=== PATIENT | male | born 1985 | race Caucasian/White ===

== ENCOUNTER 2021-04-20 10:37 | Emergency (ER) | payer OTHER, SELFPAY ==
--- NOTE | 2021-04-20 10:47 | ED.URI ---
HPI - URI/Sore Throat General Chief Complaint: Upper Respiratory Infection Stated Complaint: Cough,runny nose, congestion Time Seen by Provider: 04/20/21 10:47 Source: patient and RN notes reviewed Mode of arrival: ambulatory Limitations: no limitations History of Present Illness HPI Narrative: 36-year-old male presents to the [facility] with complaints of cough, congestion, headache that started yesterday. States that he has had a runny nose since Friday after running. Has had chills last night but unsure of fevers. 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 Requesting a work note for this weekend due to not feeling well. MD elicited complaint: cough, sore throat, rhinorrhea, nasal congestion and sinus pain Consistency: constant Related Data Home Medications Medication Instructions Recorded Confirmed No Home Medications 04/20/21 04/20/21 Allergies Allergy/AdvReac Type Severity Reaction Status Date / Time No Known Allergies Allergy Verified 04/20/21 10:41 Review of Systems Review of Systems: All systems reviewed & are unremarkable except as noted in HPI and below Constitutional: Constitutional: Reports as per HPI, Reports chills, Denies fatigue, Denies fever(s) and Denies weakness Eyes: Eyes: Reports no additional eye complaints and Denies photophobia ENT: Reports as per HPI, Denies dizziness, Denies dry mouth, Denies ear discharge, Reports headache(s) (Frontal), Denies hoarseness, Denies lip swelling, Denies mouth pain, Reports nasal congestion, Reports nasal discharge (Clear to white), Denies neck mass, Denies neck pain, Reports post nasal drip, Reports sinus pain, Reports sinus pressure, Reports sore throat, Denies throat swelling and Denies tongue swelling Cardiovascular: Cardiovascular: Reports no additional cardiovascular complaints, Denies chest pain and Denies radiating jaw, neck or arm pain Respiratory: Respiratory: Reports as per HPI, Denies chest congestion, Reports cough, Denies dyspnea and Denies wheezing Gastrointestinal: Gastrointestinal: Reports no additional gastrointestinal complaints, Denies abdominal pain, Denies diarrhea, Denies nausea and Denies vomiting Musculoskeletal: Musculoskeletal: Reports no additional musculoskeletal complaints, Denies back pain, Denies myalgias, Denies arthralgias, Denies joint swelling and Denies muscle cramps Integumentary/Breasts: Skin/Breast: Reports system reviewed and no additional complaints, except as docu and Reports rash Neurologic: Reports system reviewed and no additional complaints, except as documented, Denies dizziness, Denies syncope, Reports headache(s) and Denies numbness Psychiatric: Psychiatric: Reports no additional psychiatric complaints PMFSH Past Medical History Medical History (Updated 04/20/21 @ 11:11 by Kassie Hinkle) Patient denies medical problems Surgical History Surgical History (Updated 04/20/21 @ 11:06 by Kassie Hinkle) H/O cleft lip repair Social History Social History Gender identity (if verbalized by the patient): Male Comments At the time of my signature, I reviewed and agree with the nursing past medical, surgical, social, and family history. There is no relevant family history pertinent to the patient complaint. Exam Const: General: no acute distress, alert and ill appearing acutely Nutritional Appearance: well nourished Orientation/consciousness: patient oriented x3 HENMT: Head: normal to inspection and normocephalic Ears: external ears normal and TM's normal bilaterally General nose exam: Abnormal external nose present and Nasal discharge present clear Nose image: 1. Well-healed scar, cleft lip Face and sinus: normal facial exam and sinus tenderness frontal and maxillary Mouth: Yes Normal oral and palatal mucosa present Throat: postnasal drainage (with redness) Eyes: Conjunctivae: conjunctivae normal Pupils: Equal,
[2021-04-20 10:50] VITALS: BP 115/87; PULSE 90; RESP 18; TEMP 37.1; O2SAT 97
[2021-04-21 19:38] LABS: SARS-CoV-2 RNA PCR Negative
== END 2021-04-20 11:20 | disposition home or self-care (01) ==
PROVIDERS: Emergency Provider Nurse Practitioner
DX: J01.40 Acute pansinusitis, unspecified (principal); Z20.822 Contact with and (suspected) exposure to COVID-19
CPT/HCPCS: 87081; 87426; 87880; 99213; C9803; G0463; U0003; U0005

== ENCOUNTER 2021-10-20 10:30 | Emergency (ER) | payer OTHER, SELFPAY ==
--- NOTE | 2021-10-20 10:43 | ED.URI ---
HPI - URI/Sore Throat General Chief Complaint: Nausea/Vomiting/Diarrhea Stated Complaint: Sore Throat,Diarrhea,Vomiting,Nausea Time Seen by Provider: 10/20/21 10:43 Source: patient, RN notes reviewed and old records reviewed Mode of arrival: ambulatory Limitations: no limitations History of Present Illness HPI Narrative: 36-year-old male presents to the [facility] with complaints of a headache, nausea and diarrhea. Patient states that symptoms started late last night, diarrhea started between 2 and 3 AM. 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 States he also needs a work note to be off all weekend. Explained to patient that because his symptoms are less than 3 days that he does not meet criteria for a test due to the high false-negative. Patient became upset and asked where he can get a Covid test. Offered to fax a test to our testing facility so he can be tested on Friday. Patient verbalized that he was unhappy and needed a test today. Denies having fevers. No new foods. No chest pain or abdominal pain. States he has taken Tylenol and Motrin for his pain. Patient does report he was Covid vaccinated within the last month. Related Data Allergies Allergy/AdvReac Type Severity Reaction Status Date / Time No Known Allergies Allergy Verified 10/20/21 10:45 Review of Systems Review of Systems: All systems reviewed & are unremarkable except as noted in HPI and below Constitutional: Constitutional: Reports no additional constitutional complaints, Denies chills and Denies fever(s) Eyes: Eyes: Reports no additional eye complaints ENT: Reports system reviewed and no additional complaints, except as documented, Denies dysphagia, Denies dizziness, Denies nasal congestion and Denies sore throat Cardiovascular: Cardiovascular: Denies chest pain Respiratory: Respiratory: Reports no additional respiratory complaints, Denies cough, Denies dyspnea and Denies wheezing Gastrointestinal: Gastrointestinal: Reports as per HPI, Denies abdominal pain, Reports diarrhea, Reports nausea and Denies vomiting Musculoskeletal: Musculoskeletal: Reports no additional musculoskeletal complaints Integumentary/Breasts: Skin/Breast: Reports system reviewed and no additional complaints, except as docu Neurologic: Reports as per HPI and Reports headache(s) Psychiatric: Psychiatric: Reports no additional psychiatric complaints Allergic/Immunologic: Allergic/Immunologic: Reports no additional allergic/immunologic complaints PMFSH Past Medical History Medical History (Updated 10/20/21 @ 10:54 by Kassie Hinkle) Patient denies medical problems Surgical History Surgical History H/O cleft lip repair Social History Social History Gender identity (if verbalized by the patient): Male Comments At the time of my signature, I reviewed and agree with the nursing past medical, surgical, social, and family history. There is no relevant family history pertinent to the patient complaint. Exam Const: General: healthy appearing, no acute distress and alert Nutritional Appearance: well nourished Orientation/consciousness: patient oriented x3 Limitations: no limitations HENMT: Head: normal to inspection Ears: external ears normal, TM's normal bilaterally and EAC's normal General nose exam: Normal external nose present and Normal nasal mucous membranes and turbinates present Face and sinus: normal facial exam Mouth: Yes Normal oral and palatal mucosa present, Yes oropharynx normal and Yes moist mucous membranes Throat: posterior oropharynx normal and postnasal drainage Eyes: Conjunctivae: conjunctivae normal Pupils: Equal, round and reactive pupils present Neck: Neck: normal visual inspection, no lymphadenopathy and no meningeal signs Chest: Chest palpation & inspection: normal inspection of the chest Resp:
[2021-10-20 10:44] VITALS: BP 126/84; PULSE 76; RESP 18; TEMP 36.8; O2SAT 99
[2021-10-20 11:04] VITALS: BP 139/74; PULSE 67; RESP 20; TEMP 36.7; O2SAT 97
== END 2021-10-20 11:00 | disposition home or self-care (01) ==
PROVIDERS: Emergency Provider Nurse Practitioner
DX: K52.9 Noninfective gastroenteritis and colitis, unspecified (principal)
CPT/HCPCS: 99213; G0463

== ENCOUNTER 2023-06-13 19:43 | Emergency (ER) | payer OTHER, SELFPAY ==
--- NOTE | 2023-06-13 20:20 | PC.NURSE ---
PT CALLED FOR TRIAGE X3 AND DID NOT ANSWER.
== END 2023-06-13 20:20 | disposition left against medical advice (07) ==
DX: Z53.21 Procedure and treatment not carried out due to patient leaving prior to being seen by health care provider (principal)
CPT/HCPCS: 99199

== ENCOUNTER 2025-03-16 09:21 | Emergency (ER) | payer OTHER, SELFPAY ==
--- NOTE | ~2025-03-16 | CT_ITS ---
EXAMINATION: CT lumbar spine wo con DATE: 03/16/2025 11:06 INDICATION: Low back pain post prior surgery TECHNIQUE: Computed tomography (CT) of the lumbar spine was performed without intravenous contrast. A utomated exposure control and iterative reconstruction technique were employed. The dose-length produ ct was 388.73 mGy-cm. COMPARISON: None FINDINGS: L5 laminectomy and resection of the left-sided L5 inferior articular process. Combined L4-L5 instrume nted anterior and posterior spinal fusion with interbody fusion device and bilateral vertical varsha and pedicle screw fixation. Alignment is normal. Vertebral body and disc heights are normal. L4-L5 disc is mildly bulging with minimal central canal stenosis. No central canal stenosis. There is multilevel mild lumbar facet osteoarthritis. There is mild neural foraminal stenosis bilaterally at L4-L5 and L 5-S1. Mild osteoarthritis at the bilateral sacroiliac joints. Paravertebral soft tissues are unremark able. IMPRESSION: 1. Lumbar spondylosis with combined instrumented L5-S1 anterior and posterior spinal fusion. Reviewed, dictated and finalized at location B. IMPRESSION: 1. Lumbar spondylosis with combined instrumented L5-S1 anterior and posterior s daina fusion.
[2025-03-16 09:28] VITALS: BP 130/85; PULSE 91; RESP 18; TEMP 36.7; O2SAT 100
--- OUTSIDE RECORDS SUMMARY | 2025-03-16 09:58 | XMS_ITS | Clinical Summary ---
Author Organization [facility] Address [facility] [place] [address] Care Team Providers Care Wholesale Account Executive Name Role Phone None, Provider MD Primary Care Provider Unavaila ble Allergies Active Allergy Reactions Criticality Noted Date Comments Tape Rash High 11/24/2023 Scarring on the back; pus and swelling Medications ondansetron 4 MG disintegrating tablet Take 1 tablet (4 mg total) by mouth every 8 (eight) hours as needed for Nausea. 20 tablet 1 Active levETIRAcetam (KEPPRA) 500 MG tablet Take 1 tablet (500 mg total) by mouth 2 (two) times daily. 60 tablet 3 Active Zinc-Magnesium Aspart-Vit B6 (ZINC MAGNESIUM ASPARTATE OR) Take 1 tablet by mouth daily. Active Vitamin D3 (CHOLECALCIFEROL) 50 mcg tablet Take 1 tablet (50 mcg total) by mouth daily. Active Multiple Vitamin (MULTIVITAMIN ADULT OR) Take 1 tablet by mouth daily. Active BLACK ELDERBERRY OR Active zonisamide (ZONEGRAN) 100 MG capsule Take 1 capsule (100 mg total) by mouth daily. Active gabapentin (NEURONTIN) 300 MG capsule Take 1 capsule (300 mg total) by mouth 3 (three) times daily. 4 Active clonazePAM (KLONOPIN) 0.5 MG tablet prn Active Active Problems Problem Noted Date Diagnosed Date Lumbar radiculopathy 09/04/2024 Adjustment reaction 09/04/2023 Spinal stenosis, lumbar elida on, with neurogenic claudication 09/02/2023 Seizures (CMS/HCC [facility]) 08/11/2023 Immunizations Immunization Administration Dates Next Due Adenovirus Vaccine 12/08/2012 Fluzone (IIV3, Trivalent, 0. 5 ML Prefilled Syringe) 10/05/2024 Hepatitis A (Havrix 14[address]) 01/23/2014,2012 Influenza (Generic) 09/22/2016, 5,12/24/2014,09/18,09/18/2013,12/08/2012 Influenza Adult (Generic) 08/29/2020,09/2020,08/29/2018,10/17 MMR (MMRII) 02/08/2013,12/08/2012 Meningococcal (Menactra) 12/08/2012 Polio IPV (Ipol) 12/08/2012 Tdap (Boostrix) 05/11/2017 Tdap (Generic) 12/08/2012 Social History Tobacco Use Types Packs/Day Years Used Date Smoking Tobacco: Never Passive Smoke Exposure: Never Smokeless Tobacco: Never Tobacco Cessation:Counseling Given: Yes Comments:vapes Alcohol Use Standard Drinks/Week Comments Yes 0 (1 standard drink = 0.6 oz pur e alcohol) occ AUDIT-C Answer Date Recorded Frequency of Alcohol Consumption Never 09/18/2019 Average Number of Drinks Not on file 019 Frequency of Binge Drinking Not on file 12/2018 PHQ-2 Answer Date Recorded Patient Health Questionnaire-2 Score 3 10/05/2024 Sex and Gender Information Value Date Recorded Sex Assigned at Not on file Legal Sex Male 4:55 PM CDT Gender Identity Not on file Sexual Orientation Not on file Last Filed Vital Signs Vital Sign Reading Time Taken Comments Blood Pressure 110/84 10/05/2024 9:58 AM TAPE STRINGER Pulse 107 10/05/2024 9:58 AM TAPE STRINGER Temperature 37.1 C (98.7 F) 10/05/2024 9:58 AM TAPE STRINGER Respiratory Rate 117 10/05/2024 9:58 AM TAPE STRINGER Oxygen Saturation 98% 10/05/2024 9:58 AM TAPE STRINGER Inhaled Oxygen Concentration - - Weight 74.4 kg (164 lb) 10/05/2024 9:58 AM TAPE STRINGER Height 175.3 cm (5' 9 ) 10/05/2024 9:58 AM TAPE STRINGER Body Mass Index 24.22 10/05/2024 9:58 AM TAPE STRINGER Plan of Treatment Health Maintenance Due Date Last Done Comments Hepatitis C 2002 Hepatitis B Vaccines (1 of 3 - 19+ 3-dose series) 2003 COVID-19 Vaccine (1 2023-2 5 season) 2024 PHQ-2 (Physician [place]) 11/17/2024 10/05/2024 Annual Physical 10/05/2025 10/05/2024 DTaP, Tdap and Td Vaccines ( 3 - Td or Tdap) 05/11/2027 05/11/2017, 12/08/2012 Meningococcal Vaccine Aged Out 12/08/2012 No karen neal eligible based on patient's age to complete this topic HPV Vaccines Aged Out No longer eligi ble based on patient's age to complete this topic Meningococcal B Vaccine Aged Out No l onger eligible based on patient's age to complete this topic Pneumococcal Vaccine: Pediatrics (0 to 5 Years) and At-Risk Patients (6 to 49 Years) Aged Out No longer eligible b ased on patient's age to complete this topic RSV Immunizations Under 20 Months Aged Out No longer eligible b ased on patient's age to complete this topic Insurance Care Teams Wholesale Account Executive Relationship Specialty Start Date End Date None, Provider, PCP - General 09/18/19
--- OUTSIDE RECORDS SUMMARY | 2025-03-16 09:58 | XMS_ITS | Clinical Summary ---
Author Organization [facility] Address [address] [place] [address] Care Team Providers Care Nurse Outreach Case Manager Name Role Phone No, Physician Primary Care Provider [phone] Allergies Active Allergy Reactions Criticality Noted Date Comments Adhesive Rash High 11/24/2023 Scarring on the back; pus and swelling Medications zonisamide (ZONEGRAN) 100 mg capsuleIndicati ons:Partial Epilepsy Treatment Adjunct Take 2 capsules (200 mg total) by mouth nightly 3 Active ascorbic acid (VITAMIN C) 250 mg tabletIndicatio ns:Vitamin C Deficiency Take 4 tablets (1,000 mg total) by mouth every morning Active cholecalciferol (VITAMIN D-3) 2000 unit tabletIndicatio ns:Vitamin D Deficiency Take 1 tablet (2,000 Units total) by mouth nightly Active apple cider vinegar 600 mg capsuleIndicati ons:supplement Take 1,200 mg by mouth nightly Active pyridoxine (VITAMIN B-6) 100 mg tabletIndicatio ns:supplement Take 1 tablet (100 mg total) by mouth every morning Active cyanocobalamin, vitamin B-12, 1,000 mcg capsuleIndicati ons:Prevention of Vitamin B12 Deficiency Take 1,000 mcg by mouth every morning Active multivitamin capsuleIndicati ons:Vitamin Deficiency Prevention Take 1 capsule by mouth nightly Active ELDERBERRY FRUIT ORALIndications :supplement Take 1 tablet by mouth nightly Active UNABLE TO FINDIndications :supplement Take 1 each by mouth nightly Med Name: zinc with magnesium Active acetaminophen 500 mg capsule Take 2 capsules (1,000 mg total) by mouth every 6 (six) hours as needed for pain 3 Active kdtfvpcs-itx-cv rrous sulfate 4.5 mg iron powder in packet Take 1 capsule by mouth nightly Active gabapentin (NEURONTIN) 300 mg capsule Take 1 capsule (300 mg total) by mouth 3 (three) times a day 90 capsule 3 4 03/24/20 25 Active clonazePAM (KlonoPIN) 0.5 mg tablet Take 0.5 tablets (0.25 mg total) by mouth daily as needed [address] (CYMBALTA) 30 mg capsuleIndicati ons:Anxiety with Depression Take 1 capsule (30 mg total) by mouth nightly Active tiZANidine (ZANAFLEX) 4 mg tablet Take 1 tablet (4 mg total) by mouth every 6 (six) hours as needed for muscle spasms 120 tablet 1 5 Active Active Problems Problem Noted Date Diagnosed Date Lumbar radiculopathy 09/04/2024 Low back pain 04/21/2024 Spinal stenosis 10/08/2023 Adjustment disorder 09/04/2023 Spinal stenosis, lumbar elida on, with neurogenic claudication 09/02/2023 Seizures 08/11/2023 Encounters Date Type Department Care Team Description 02/16/2025 Telephone [facility] at [facility] [address] [address], [address] [place] [phone] Naima Ibanez MD from Last 3 Months Immunizations Immunization Administration Dates Next Due Adenovirus 12/08/2012 Hep A, Adult 01/23/2014,12/08/2012 IPV 12/08/2012 Influenza, Quadrivalent, Spl it, Intramuscular 10/17/2017 Influenza, Quadrivalent, Spl it, Preservative Free, Intramuscular 08/29/2020,11/27/2019,08/29/2018 Influenza, Trivalent, IM (MDV) 5,12/24/2014,09/18/2014,09/18 Influenza, Trivalent, Preser vative Free, Intramuscular 09/22/2016,12/08/2012 MMR 02/08/2013,12/08/2012 Meningococcal MCV4P (Menactra) 12/08/2012 PPD TEST 12/03/2012 Tdap 05/11/2017,12/08/2012 Surgical History Surgery Date Site/Laterality Comments CLEFT LIP REPAIR 11/17/1983 - 1984 SPINAL FUSION 10/08/2023 N/A L5-S1 TLIF/PSF W/ Dr. Herrera Medical History Medical History Date Comments Low back pain Family History Medical History Relation Name Comments Anesthesia problems Neg Hx Social History Tobacco Use Types Packs/Day Years Used Date Smoking Tobacco: Every Day Vaping Smokeless Tobacco: Never Tobacco Cessation:Ready to Q uit: Not Asked; Counseling Given: Not Answered Comments:Daily vaping, no cigarettes AUDIT-C Answer Date Recorded Q1: How often do you have a drink containing alc ohol? 2-3 times a week 12/13/2024 Q2: How many drinks containi ng alcohol do you have on a typical day when you are drinking? 7 to 9 12/13/2024 Q3: How often do you have si x or more drinks on one occasion? Weekly 12/13/2024 Personal Safety Answer Date Recorded Have you ever been in or are you currently in a harmful physical or emotional relationship or is someone making you feel afraid or unsafe? Denies 10/08/2023 Sex and Gender Information Value Date Recorded Sex Assigned at Not on file Legal Sex Male 10:21 PM SIDE LASTER TACK Gender Identity Male 10/01/2023 9:44 AM SIDE LASTER TACK Sexual Orientation Not on file Obstetrics History Last Filed Vital Signs Vital Sign Reading Time Taken Comments Blood Pressure 122/73 08/31/2024 9:50 AM CDT Pulse 80 08/31/2024 9:50 AM CDT Temperature 36.2 C (97.2 F) 08/31/2024 9:50 AM CDT Respiratory Rate 18 08/31/2024 9:50 AM CDT Oxygen Saturation 98% 08/31/2024 9:50 AM CDT Inhaled Oxygen Concentration - - Weight 72.6 kg (160 lb) 08/31/2024 9:50 AM CDT Height 175.3 cm (5' 9 ) 08/31/2024 9:50 AM CDT Body Mass Index 23.63 08/31/2024 9:50 AM CDT Plan of Treatment Health Maintenance Due Date Last Done Comments Depression Screening 1984 Hepatitis C Screening 1984 Varicella Vaccines (1 of 2 - 13+ 2-dose series) 1997 Hepatitis B Screening 2002 Regular Well Visit/Exam 18-64 2002 Pneumococcal vaccine <65 (1 of 2 - PCV) 2003 Covid-19 Vaccine (3 - 2023- season) 2024 10/09/2021, 09/18/2021 DTaP/Tdap/Td Vaccine (3 - Td or Tdap) 05/11/2027 05/11/2017, 12/08/2012 Influenza Vaccine Completed 10/05/2024, , 11/27/2019, Additional history exists HPV Vaccines Aged Out No longer eligi ble based on patient's age to complete this topic Goals Goal Patient Goal Type Associated Problems Recent Progress Patient-Stated? Author CCM Chronic Pain Care Plan Chronic Care Management Yanique Lange, RN Note: Problem: Chronic Pain Goals: 1. Minimize further functional decline 2. Maximize quality of life 3. Control pain Strategies: - Activity/exercise program recommendation - Conservative stepwise pain medicine strategy with multi-disciplinary approach - Recommend healthy lifestyle strategies and compensatory methods as needed Reduce the likelihood of falling Lifestyle No Yanique Obrien, RN Note: Below are four things you can do to prevent falls: Begin an exercise program to improve your leg strength & balance Ask your doctor or pharmacist to review your medicines Get annual eye check-ups & update your eyeglasses Make your home safer by: Removing clutter & tripping hazards Putting railings on all stairs & adding grab bars in the bathroom Having good lighting, especially on stairs Contact your local community or senior center for information on exercise, fall prevention programs, or options for improving home safety. Medical Devices Implanted Type Area Mud Analysis Operator Device Identifier Shelf Expiration Date Model / Serial / Lot Medtronic Inc Bmp Infuse Sm [id number] - [id number] Implanted:Qty : 1 on 10/08/2023 by Demond Herrera MD at [facility] Graft N/A: Spine Lumbar Med[employer]onic Inc [id number] 01/15/2025 [id number] / / [id number] [employer] Implant Spinal Sable [id number] 6-12mm 8 Deg 1172.2009s - [id number] Implanted:Qty : 1 on 10/08/2023 by Demond Herrera MD at [facility] Other - see comments N/A: Spine Lumbar [employer] [id number] 07/16/2032 1172.2009S / / [id number] Description:Spacer [employer] Creo Thread Spinal Cap Locking Nonsterile 1119.0010 - [id number] Implanted:Qty : 4 on 10/08/2023 by Demond Herrera MD at [facility] Other - see comments N/A: Spine Lumbar [employer] 1119.0010 / / Description:Locking Caps [employer] Creo 5.5mm 40mm Curve Keanu Spinal Titanium 1119.7040 - [id number] Implanted:Qty : 2 on 10/08/2023 by Demond Herrera MD at [facility] Other - see comments N/A: Spine Lumbar [employer] 1119.7040 / / Description:Keanu [employer] Creo Od6.5 Mm L45 Mm Thread Polyaxial Spine Screw Bone Titanium 5146.1647 - [id number] Implanted:Qty : 4 on 10/08/2023 by Demond Herrera MD at [facility] Screw N/A: Spine Lumbar [employer] 5146.1647 / / Allosource Crushed Chip Frozen Graft 30ml Bone Cancellous [id number] - [id number] Implanted:Qty : 1 on 10/08/2023 by Demond Herrera MD at [facility] N/A: Spine Lumbar [employer] 03/25/2028 [id number] / / [id number] Insurance [facility] CLAIMS 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
--- OUTSIDE RECORDS SUMMARY | 2025-03-16 09:58 | XMS_ITS | Clinical Summary ---
Author Organization [facility] [employer] Address [address] [place] [address] Care Team Providers Care Business Functional Analyst Name Role Phone Unavailable Primary Care Provider Unavailabl e Source Comments [facility] [employer],non-owned Affiliates and Associated Physician Practices is amultiple site organization consisting of ambulatory clinics and hospital sitesin [place], [place], [place] and [place]. This disclosure is being madepursuant to the Care Everywhere program and may not contain all information available regarding this patient. Last updated 18.[facility] [employer] Allergies Active Allergy Reactions Criticality Noted Date Comments Adhesive Sensitivity Rash High 11/24/2023 Scarring on the back; pus and swelling Medications * This document contains information received from the source organization and may not represent a complete record from that organization. * Be aware that medications may not be up to date on this document. Alwaysverify current medications with the patient. Apple Cider Vinegar 600 MG Take 1,200 mg by mouth once daily Active vitamin E (Tocopheryl) 100 UNIT capsule Take 4 (four) capsules by mouth once daily Active Cyanocobalamin (B-12) 1000 MCG Take 1,000 mcg by mouth once daily Active ascorbic acid (Vitamin C) 250 MG tablet Take 4 (four) tablets by mouth once daily Active Zinc-Magnesium Aspart-Vit B6 (ZINC MAGNESIUM ASPARTATE PO) Take 1 tablet by mouth at bedtime Active Vitamin D3, cholecalciferol, 50 MCG (2000 UT) tablet Take 1 (one) tablet by mouth at bedtime Active Multiple Vitamins-Minerals (MENS MULTIVITAMIN PO) Take 1 tablet by mouth at bedtime Active BLACK ELDERBERRY PO Take 1 tablet by mouth at bedtime Active Pyridoxine HCl (B-6) 100 MG Take 1 tablet by mouth at bedtime Active ascorbic acid (Vitamin C) 250 MG tablet Take 4 (four) tablets by mouth every morning Active cyclobenzaprine (Flexeril) 5 MG tablet 3 Active Cyanocobalamin 1000 MCG Take 1,000 mcg by mouth every morning Active multivitamins (One A Day) capsule Take 1 (one) capsule by mouth at bedtime Active zonisamide (Zonegran) 100 MG capsule Take 2 (two) capsules by mouth at bedtime 180 capsule 3 4 Active DULoxetine (Cymbalta) 60 MG capsule Take 1 (one) capsule by mouth once daily 90 capsule 1 5 Active clonazePAM (KlonoPIN) 0.5 MG tabletIndications :Anxiety Take 0.5 (one-half) tablet by mouth once daily as needed for Anxiety Reasons: Feeling Anxious 15 tablet 1 5 Active mirtazapine (Remeron) 7.5 MG tablet Take 1 (one) tablet by mouth at bedtime 90 tablet 5 Active Active Problems Problem Noted Date Diagnosed Date Seizures 08/11/2023 Encounters * This document contains information received from the source organization and may not represent a complete record from that organization. Date Type Department Care Team Description 12/24/2024 Travel from Last 3 Months Social History Tobacco Use Types Packs/Day Years Used Date Smoking Tobacco: Never Smokeless Tobacco: Never Tobacco Cessation:Counseling Given: Not Answered Alcohol Use Standard Drinks/Week Comments Yes 0 (1 standard drink = 0.6 oz pur e alcohol) AUDIT-C Answer Date Recorded Q1: How often do you have a drink containing alc ohol? Monthly or less 08/11/2023 Q2: How many drinks containi ng alcohol do you have on a typical day when you are drinking? 1 or 2 08/11/2023 Q3: How often do you have si x or more drinks on one occasion? Never 08/11/2023 Overall Financial Resource Strain (CARDIA) Answe r Date Recorded How hard is it for you to pa y for the very basics like food, housing, medical care, and heating? Not hard at all 08/11/2023 PHQ-2 Answer Date Recorded Patient Health Questionnaire-2 Score 2 12/24/2024 [place] [facility] - Occupational Stress Questionnaire Answer Date Recorded Do you feel stress - tense, restless, nervous, or anxious, or unable to sleep at night because your mind is troubled all the time - these days? Not at all 08/11/2023 Hunger Vital Sign Answer Date Recorded Within the past 12 months, y ou worried that your food would run out before you got the money to buy more. Never true 08/11/20 Within the past 12 months, t he food you bought just didn't last and you didn't have money to get more. Never true 08/11/2023 PRAPARE - Transportation Answer Date Re corded In the past 12 months, has l ack of transportation kept you from medical appointments or from getting medications? No 07/19 In the past 12 months, has l ack of transportation kept you from meetings, work, or from getting things needed for daily living? No 08/11/2023 Housing Stability Vital Sign Answer Blair e Recorded In the last 12 months, was t here a time when you were not able to pay the mortgage or rent on time? No 08/11/2023 In the last 12 months, how many places have you lived? 1 08/11/2023 In the last 12 months, was t here a time when you did not have a steady place to sleep or slept in a [place] (including now)? No 08/11/2023 Sex and Gender Information Value Date Recorded Sex Assigned at Male 10/09/2023 9:19 AM EXCELLENCE COACH Legal Sex Male 12:24 PM EXCELLENCE COACH Gender Identity Male 10/09/2023 9:19 AM EXCELLENCE COACH Sexual Orientation Straight 10/09/2023 9: 19 AM EXCELLENCE COACH Last Filed Vital Signs Vital Sign Reading Time Taken Comments Blood Pressure 114/80 12/24/2024 10:59 AM EXCELLENCE COACH Pulse 60 12/24/2024 10:59 AM EXCELLENCE COACH Temperature 36.8 C (98.3 F) 07/21/2024 12:25 AM CDT Respiratory Rate 16 07/21/2024 3:21 AM CDT Oxygen Saturation 68% 12/24/2024 10:59 AM EXCELLENCE COACH Inhaled Oxygen Concentration - - Weight 75.8 kg (167 lb) 12/24/2024 10:59 AM EXCELLENCE COACH Height 175.3 cm (5' 9 ) 12/24/2024 10:59 AM EXCELLENCE COACH Body Mass Index 24.66 12/24/2024 10:59 AM EXCELLENCE COACH Plan of Treatment Upcoming Encounters Date Type Department Care Team (Late st Contact Info) Description 06/28/2025 10:30 AM CDT Office Visit [facility] - Neurology [address] [place] [phone] Daren Nguyen MD [facility] [place] [id number] Health Maintenance Due Date Last Done Comments HIV SCREENING 1999 HEPATITIS C SCREENING 03/26/2002 DTAP/TDAP/TD VACCINES (1 - Tdap) 2003 HEPATITIS B VACCINE (1 of 3 - 19+ 3-dose series) 2003 COVID-19 VACCINE (3 - 2023- season) 2024 10/09/2021, 09/18/2021 LIPID TESTING 10/05/2029 10/05/2024 ZOSTER VACCINE (1 of 2) 2034 INFLUENZA VACCINE Completed 10/05/2024, , 11/27/2019, Additional history exists DEPRESSION SCREENING Completed 12/24/2024, 06/09/20 24 HIB VACCINE Aged Out No longer eligi ble based on patient's age to complete this topic HPV VACCINE Aged Out No longer eligi ble based on patient's age to complete this topic MENINGOCOCCAL (Group B) VACCINE SHARED DECISION-MAKING Aged Out No longer eligible based on patient's age to complete this topic MENINGOCOCCAL GROUPS A/C/Y/W VACCINE Aged Out No longer eligible based on patient's age to complete this topic PNEUMOCOCCAL VACCINE Aged Out No long er eligible based on patient's age to complete this topic Insurance Advance Directives * Full Code (Latest Code Status on File) Date Activated Date Inactivated Comments 08/11/2023 9:27 AM 08/16/2023 5:21 PM
--- OUTSIDE RECORDS SUMMARY | 2025-03-16 09:58 | XMS_ITS | Encounter Summary ---
Author Organization [facility] Address [address] [place] [address] Care Team Providers Care Technical Services Manager Name Role Phone Unknown, Notinfile Primary Care Provider Unavail able No, Physician Primary Care Provider [phone] Reason for Visit * Reason Onset Date Comments Scheduling Appointments 06/25/2024 Pt's wif e called in to schedule f/u Encounter Details Date Type Department Care Team ([facility] Contact Info) Description 06/25/2024 Telephone Pain Management Center at [facility] [address] [address], [address] [place] [address] Naima Ibanez MD [address] [place] [address] Scheduling Appointments (Pt's called in to schedule f/u) Social History Tobacco Use Types Packs/Day Years Used Date Smoking Tobacco: Every Day Cigarettes Last attempted to quit: 1999 Vaping Smokeless Tobacco: Never Comments:Daily vaping, no ci garettes AUDIT-C Answer Date Recorded Q1: How often do you have a drink containing alc ohol? Monthly or less 04/22/2024 Q2: How many drinks containi ng alcohol do you have on a typical day when you are drinking? 1 or 2 04/22/2024 Q3: How often do you have si x or more drinks on one occasion? Never 04/22/2024 Personal Safety Answer Date Recorded Have you ever been in or are you currently in a harmful physical or emotional relationship or is someone making you feel afraid or unsafe? Denies 10/08/2023 Sex and Gender Information Value Date Recorded Sex Assigned at Not on file Legal Sex Male 10:21 PM MANAGER NC Gender Identity Male 10/01/2023 9:44 AM MANAGER NC Sexual Orientation Not on file documented as of this encounter Plan of Treatment Not on file documented as of this encounter Goals Goal Patient Goal Type Associated Problems [...] needed Reduce the likelihood of falling Lifestyle Yanique Lange, RN Note: Below are four things you [...] programs, or options for improving home safety. documented as of this encounter Visit Diagnoses Not on filedocumented in this encounter Care Teams Technical Services Manager Relationship Specialty Start Date End Date Unknown, Notinfile PCP - General 10/10/23 12/12/24 No, Physician PCP - General 12/13/24 documented as of this encounter
--- OUTSIDE RECORDS SUMMARY | 2025-03-16 09:58 | XMS_ITS | Referral Summary ---
Author Organization [facility] Address [address] [place] [address] Care Team Providers Care Tactical Air Control Party Manager Name Role Phone No, Physician Primary Care Provider [phone] Encounters Date Type Department Care Team Description 02/16/2025 Telephone [facility] at [facility] [address] [place] [address] Naima Ibanez MD from Last 3 Months Allergies Active Allergy Reactions Criticality Noted Date [...] hours as needed for pain 3 Active wgcsbjhn-uhh-di rrous sulfate 4.5 mg iron powder in [...] on, with neurogenic claudication 09/02/2023 Seizures 08/11/2023 Immunizations Immunization Administration Dates Next Due Adenovirus 12/08/2012 Hep A, Adult 01/23/2014,12/08/2012 IPV 12/08/2012 Influenza, Quadrivalent, Spl it, Intramuscular 10/17/2017 Influenza, Quadrivalent, Spl it, Preservative Free, Intramuscular 08/29/2020,11/27/2019,08/29/2018 Influenza, Trivalent, IM (MDV) 5,12/24/2014,09/18/2014,09/18 Influenza, Trivalent, Preser vative Free, Intramuscular 09/22/2016,12/08/2012 MMR 02/08/2013,12/08/2012 Meningococcal MCV4P (Menactra) 12/08/2012 PPD TEST 12/03/2012 Tdap 05/11/2017,12/08/2012 Social History Tobacco Use Types Packs/Day Years [...] on file Legal Sex Male 10:21 PM NURSING FACULTY Gender Identity Male 10/01/2023 9:44 AM NURSING FACULTY Sexual Orientation Not on file Last Filed [...] 08/31/2024 9:50 AM CDT Plan of Treatment Not on file Goals Goal Patient Goal Type Associated Problems [...] on stairs Contact your local community or [facility] for information on exercise, fall prevention programs, or options for improving home safety. Medical Devices Implanted Type Area Worm Farmer Device Identifier Shelf Expiration Date Model / Serial / Lot Medtronic Inc Bmp Infuse Sm [id number] - [id number] Implanted:Qty : 1 on 10/08/2023 by Demond Herrera MD at [facility] Graft N/A: Spine Lumbar Medtronic Inc [id number] 01/15/2025 [id number] / / [id number] Globus Medical Implant Spinal Sable [id number] 6-12mm 8 Deg 1172.2009s - [id number] Implanted:Qty : 1 on 10/08/2023 by Demond Herrera MD at [facility] Other - see comments N/A: Spine Lumbar [employer] [id number] 07/16/2032 1172.2009S / / [id number] Description:Spacer [employer] Creo Thread Spinal Cap Locking Nonsterile 1119.0010 - [id number] Implanted:Qty : 4 on 10/08/2023 by Demond Herrera MD at [facility] Other - see comments N/A: Spine Lumbar [employer] 1119.0010 / / Description:Locking Caps Gl[employer] Creo 5.5mm 40mm Curve Keanu Spinal Titanium 1119.7040 - [id number] Implanted:Qty : 2 on 10/08/2023 by Demond Herrera MD at [facility] Other - see comments N/A: Spine Lumbar [employer] 1119.7040 / / Description:Keanu [employer] Creo Od6.5 Mm L45 Mm Thread Polyaxial Spine Screw Bone Titanium 5146.1647 - [id number] Implanted:Qty : 4 on 10/08/2023 by Demond Herrera MD at [facility] Screw N/A: Spine Lumbar [employer] 5146.1647 / / Allosource Crushed Chip Frozen Graft 30ml Bone Cancellous [id number] - [id number] Implanted:Qty : 1 on 10/08/2023 by Demond Herrera MD at [facility] N/A: Spine Lumbar [employer] 03/25/2028 [id number] / / [id number] Insurance [facility] CLAIMS [facility] CLAIMS Advance Directives For more information, please contact: [phone] Documents on File Type Date Recorded Patient Level Vial Inside Grinder Expl anation ADVANCE DIRECTIVE 09/19/2023 12:51 PM XIMENA R OF MECHANICAL DOOR REPAIRER-MEDICAL * Full Code (Latest Code Status on File) Date Activated Date Inactivated Comments 10/08/2023 7:26 PM 10/11/2023 5:49 PM Care Teams Tactical Air Control Party Manager Relationship Specialty Start Date End Date No, Physician PCP - General 12/13/24
--- OUTSIDE RECORDS SUMMARY | 2025-03-16 10:43 | XMS_ITS | Clinical Summary ---
Author Organization [facility] Address [facility] [place] [address] Care Team Providers Care Can Top Setter Name Role Phone None, Provider MD Primary [...] with neurogenic claudication 09/02/2023 Seizures (CMS/HCC [facility]) 08/11/2023 Immunizations Immunization Administration Dates Next Due [...] Comments Blood Pressure 110/84 10/05/2024 9:58 AM PULMONARY FUNCTION TECHNOLOGIST Pulse 107 10/05/2024 9:58 AM PULMONARY FUNCTION TECHNOLOGIST Temperature 37.1 C (98.7 F) 10/05/2024 9:58 AM PULMONARY FUNCTION TECHNOLOGIST Respiratory Rate 117 10/05/2024 9:58 AM PULMONARY FUNCTION TECHNOLOGIST Oxygen Saturation 98% 10/05/2024 9:58 AM PULMONARY FUNCTION TECHNOLOGIST Inhaled Oxygen Concentration - - Weight 74.4 kg (164 lb) 10/05/2024 9:58 AM PULMONARY FUNCTION TECHNOLOGIST Height 175.3 cm (5' 9 ) 10/05/2024 9:58 AM PULMONARY FUNCTION TECHNOLOGIST Body Mass Index 24.22 10/05/2024 9:58 AM PULMONARY FUNCTION TECHNOLOGIST Plan of Treatment Health Maintenance Due Date Last Done Comments Hepatitis C 2002 Hepatitis B Vaccines (1 of 3 - 19+ 3-dose series) 2003 COVID-19 Vaccine (1 2023-2 5 season) 2024 PHQ-2 (Physician [place]) 11/17/2024 10/05/2024 Annual Physical 10/05/2025 10/05/2024 DTaP, [...] to complete this topic Insurance Care Teams Can Top Setter Relationship Specialty Start Date End Date None, Provider, PCP - General 09/18/19
--- OUTSIDE RECORDS SUMMARY | 2025-03-16 10:43 | XMS_ITS | Clinical Summary ---
Author Organization [facility] Address [address] [place] [address] Care Team Providers Care Sales And Marketing Engineer Name Role Phone No, Physician Primary Care Provider [phone] Allergies Active Allergy Reactions Criticality Noted Date [...] hours as needed for pain 3 Active xikquanj-lus-yf rrous sulfate 4.5 mg iron powder in [...] Description 02/16/2025 Telephone Pain Management Center at [facility] [address] [address], [address] [place] [address] Naima Ibanez MD from Last 3 Months [...] on file Legal Sex Male 10:21 PM ORTHOTIC/PROSTHETIC CLINICIAN Gender Identity Male 10/01/2023 9:44 AM ORTHOTIC/PROSTHETIC CLINICIAN Sexual Orientation Not on file Obstetrics History [...] home safety. Medical Devices Implanted Type Area Job Site Supervisor Device Identifier Shelf Expiration Date Model / Serial / Lot Medtronic Inc Bmp Infuse Sm [id number] - [id number] Implanted:Qty : 1 on 10/08/2023 by Demond Herrera MD at [facility] Graft N/A: Spine Lumbar Medtronic Inc [id number] 01/15/2025 [id number] / / [id number] Globus Medical Implant Spinal Sable [id number] 6-12mm 8 Deg 1172.2009s - [id number] Implanted:Qty : 1 on 10/08/2023 by Demond Herrera MD at [facility] Other - see comments N/A: Spine Lumbar [employer] [id number] 07/16/2032 1172.2009S / / [id number] Description:Spacer Gl[employer] Medical Creo Thread Spinal Cap Locking Nonsterile 1119.0010 - [id number] Implanted:Qty : 4 on 10/08/2023 by Demond Herrera MD at [facility] Other - see comments N/A: Spine Lumbar Gl[employer] 1119.0010 / / Description:Locking Caps Gl[employer] Medical Creo 5.5mm 40mm Curve Keanu Spinal Titanium 1119.7040 - [id number] Implanted:Qty : 2 on 10/08/2023 by Demond Herrera MD at [facility] Other - see comments N/A: Spine Lumbar [employer] 1119.7040 / / Description:Keanu Gl[employer] Medical Creo Od6.5 Mm L45 Mm Thread Polyaxial Spine Screw Bone Titanium 5146.1647 - [id number] Implanted:Qty : 4 on 10/08/2023 by Demond Herrera MD at [facility] Screw N/A: Spine Lumbar [employer] 5146.1647 / / Allosource Crushed Chip Frozen Graft 30ml Bone Cancellous [id number] - [id number] Implanted:Qty : 1 on 10/08/2023 by Demond Herrera MD at [facility] N/A: Spine Lumbar Allosource 03/25/2028 [id number] / / [id number] Insurance [facility] CLAIMS [facility] CLAIMS Advance Directives For more information, please contact: [phone] Documents on File Type Date Recorded Patient Delinquent Tax Collector Expl anation ADVANCE DIRECTIVE 09/19/2023 12:51 PM XIMENA R OF AIRCRAFT REFUELLER-MEDICAL * Full Code (Latest Code Status on File) Date Activated Date Inactivated Comments 10/08/2023 7:26 PM 10/11/2023 5:49 PM Care Teams Sales And Marketing Engineer Relationship Specialty Start Date End Date No, Physician PCP - General 12/13/24
--- OUTSIDE RECORDS SUMMARY | 2025-03-16 10:43 | XMS_ITS | Encounter Summary ---
Author Organization [facility] Healthcare Address [address] [place] [address] Care Team Providers Care Design Engineering Manager Name Role Phone Unknown, Notinfile Primary Care Provider Unavail able No, Physician Primary Care Provider [phone] Reason for Visit * Reason Onset Date Comments Scheduling Appointments 06/25/2024 Pt's wif e called in to schedule f/u Encounter Details Date Type Department Care Team ([facility] Contact Info) Description 06/25/2024 Telephone Pain Management Center at [facility] [address] [address], [address] [place] [address] Naima Ibanez MD [address] [place] [address] Scheduling Appointments (Pt's called in [...] on file Legal Sex Male 10:21 PM GLOVE PARTS INSPECTOR Gender Identity Male 10/01/2023 9:44 AM GLOVE PARTS INSPECTOR Sexual Orientation Not on file documented as [...] on filedocumented in this encounter Care Teams Design Engineering Manager Relationship Specialty Start Date End Date Unknown, Notinfile PCP - General 10/10/23 12/12/24 No, Physician PCP - General 12/13/24 documented as of this encounter
--- OUTSIDE RECORDS SUMMARY | 2025-03-16 10:43 | XMS_ITS | Clinical Summary ---
Author Organization [facility] [employer] Address [address] [place] [address] Care Team Providers Care Smoking Pipe Coater Name Role Phone Unavailable Primary Care Provider Unavailabl e Source Comments [facility],non-owned Affiliates and Associated Physician Practices is amultiple site organization consisting of ambulatory clinics and hospital sitesin [place], [place], [place] and [place]. This disclosure is being madepursuant to the Care Everywhere program and may not contain all information available regarding this patient. Last updated 18.[facility] Allergies Active Allergy Reactions Criticality Noted Date [...] Recorded Patient Health Questionnaire-2 Score 2 12/24/2024 [place] [facility] Occupat ional Health - Occupational Stress [...] Sex Assigned at Male 10/09/2023 9:19 AM ANCHORMAN Legal Sex Male 12:24 PM ANCHORMAN Gender Identity Male 10/09/2023 9:19 AM ANCHORMAN Sexual Orientation Straight 10/09/2023 9: 19 AM ANCHORMAN Last Filed Vital Signs Vital Sign Reading Time Taken Comments Blood Pressure 114/80 12/24/2024 10:59 AM ANCHORMAN Pulse 60 12/24/2024 10:59 AM ANCHORMAN Temperature 36.8 C (98.3 F) 07/21/2024 12:25 AM CDT Respiratory Rate 16 07/21/2024 3:21 AM CDT Oxygen Saturation 68% 12/24/2024 10:59 AM ANCHORMAN Inhaled Oxygen Concentration - - Weight 75.8 kg (167 lb) 12/24/2024 10:59 AM ANCHORMAN Height 175.3 cm (5' 9 ) 12/24/2024 10:59 AM ANCHORMAN Body Mass Index 24.66 12/24/2024 10:59 AM ANCHORMAN Plan of Treatment Upcoming Encounters Date Type Department Care Team (Late st Contact Info) Description 06/28/2025 10:30 AM CDT Office Visit [facility] - [facility]rology [address] [place] [address] Daren Nguyen MD [facility] [place] [address] Health Maintenance Due Date Last Done Comments [...]
--- OUTSIDE RECORDS SUMMARY | 2025-03-16 10:43 | XMS_ITS | Referral Summary ---
Author Organization [facility] Address [address] [place] [address] Care Team Providers Care Jtac Name Role Phone No, Physician Primary Care Provider [phone] Encounters Date Type Department Care Team Description 02/16/2025 Telephone [facility] at [facility] [address] [place] [address] Naima Ibanez MD from Last [...] hours as needed for pain 3 Active urxovfyu-pum-uc rrous sulfate 4.5 mg iron powder in [...] on file Legal Sex Male 10:21 PM DATA PROCESSING CONSULTANT Gender Identity Male 10/01/2023 9:44 AM DATA PROCESSING CONSULTANT Sexual Orientation Not on file Last Filed [...] on stairs Contact your local community or [facility] for information on exercise, fall prevention programs, or options for improving home safety. Medical Devices Implanted Type Area [employer] Carpenter Device Identifier Shelf Expiration Date Model / Serial / Lot Med[employer]onic Inc Bmp Infuse Sm [id number] - [id number] Implanted:Qty : 1 on 10/08/2023 by Demond Herrera MD at [facility] Graft N/A: Spine Lumbar Med[employer] Inc [id number] 01/15/2025 [id number] / / [id number] [employer] Implant Spinal Sable [id number] 6-12mm 8 Deg 1172.2009s - [id number] Implanted:Qty : 1 on 10/08/2023 by Demond Herrera MD at [facility] Other - see comments N/A: Spine Lumbar [employer] [id number] 07/16/2032 1172.2009S / / [id number] Description:Spacer [employer] Creo Thread Spinal Cap Locking Nonsterile 1119.0010 - [id number] Implanted:Qty : 4 on 10/08/2023 by Demond Herrera MD at [facility] Other - see comments N/A: Spine Lumbar [employer] 1119.0010 / / Description:Locking Caps [employer] Creo 5.5mm 40mm Curve Keanu Spinal Titanium 1119.7040 - [id number] Implanted:Qty : 2 on 10/08/2023 by Demond Herrera MD at [facility] Other - see comments N/A: Spine Lumbar [employer] 1119.7040 / / Description:Keanu [employer] Creo Od6.5 Mm L45 Mm Thread Polyaxial Spine Screw Bone Titanium 5146.1647 - [id number] Implanted:Qty : 4 on 10/08/2023 by Demond Herrera MD at [facility] Screw N/A: Spine Lumbar [employer] 5146.1647 / / Allosource Crushed Chip Frozen Graft 30ml Bone Cancellous [id number] - [id number] Implanted:Qty : 1 on 10/08/2023 by Demond Herrera MD at [facility] N/A: Spine Lumbar [employer] 03/25/2028 [id number] / / [id number] Insurance [facility] CLAIMS [facility] CLAIMS Advance Directives For more information, please contact: [phone] Documents on File Type Date Recorded Patient Liner Man Expl anation ADVANCE DIRECTIVE 09/19/2023 12:51 PM XIMENA R OF VALIDATION SPECIALIST-MEDICAL * Full Code (Latest Code Status on File) Date Activated Date Inactivated Comments 10/08/2023 7:26 PM 10/11/2023 5:49 PM Care Teams Jtac Relationship Specialty Start Date End Date No, Physician PCP - General 12/13/24
--- NOTE | 2025-03-16 10:47 | ED.BACK ---
HPI - Back Pain/Injury General Chief Complaint: Back Pain/Injury Stated Complaint: burning sensation down R leg and bilateral feet Time Seen by Provider: 03/16/25 09:39 History of Present Illness HPI Narrative: Patient is a 39-year-old male who presents to the ER with complaints of lower back pain. He reports he went for a jog on Friday, 5 days ago. Since then he has experienced significant back pain, especially on the right side, that radiates down his leg. Patient reports his pain is so significant that he is having trouble walking. He reports he has a history of back surgery in 2022. Patient reports he underwent he is here today after his surgery and has recovered well until this point. He denies any urinary symptoms, saddle anesthesia, incontinence, or recent fevers. Related Data Allergies Allergy/AdvReac Type Severity Reaction Status Date / Time adhesive Allergy burn Verified 03/16/25 09:23 Review of Systems Review of Systems: All systems reviewed & are unremarkable except as noted in HPI and below PMFSH Past Medical History Medical History Patient denies medical problems Surgical History Surgical History H/O cleft lip repair Social History Social History Gender identity (if verbalized by the patient): Male Exam Narrative: GENERAL: Well appearing, well-nourished, non-toxic, in no acute distress. HEAD: Normocephalic, atraumatic. NECK: Supple. No adenopathy, no masses. RESPIRATORY: Airway patent, respirations nonlabored. Clear to auscultation bilaterally, no rales, rhonchi, wheezing. CARDIOVASCULAR: Regular rate and rhythm without murmurs, rubs, or gallops. Peripheral pulses 2+ and equal bilaterally. ABDOMINAL: Soft, nontender, nondistended, no hepatosplenomegaly. Normoactive BS. MUSCULOSKELETAL: Moves all extremities. Strength/ROM intact without gross deformities. SKIN: Warm, dry, normal color. No rashes. NEURO: A&O X3. Speech clear. Cranial nerves II-XII intact. No ataxic movements. PSYCHIATRIC: Appropriate mood and affect. Normal interaction. Course Vital Signs Vital signs: Vital Signs Temperature 36.7 C 03/16/25 09:28 Pulse Rate 91 03/16/25 09:28 Respiratory Rate 18 03/16/25 09:28 Blood Pressure 130/85 03/16/25 09:28 Pulse Oximetry 100 03/16/25 09:28 Oxygen Delivery Room Air 03/16/25 09:28 Temperature 36.7 C 03/16/25 09:28 Pulse Rate 72 03/16/25 12:50 Respiratory Rate 14 03/16/25 12:50 Blood Pressure 113/72 03/16/25 12:50 Pulse Oximetry 98 03/16/25 12:50 Oxygen Delivery Room Air 03/16/25 09:28 MDM - Back Pain/Injury MDM Narrative Medical decision making narrative: Patient is a 39-year-old male who presents to the ER with complaints of lower back pain. He reports he went for a jog on Friday, 5 days ago. Since then he has experienced significant back pain, especially on the right side, that radiates down his leg. Patient reports his pain is so significant that he is having trouble walking. He reports he has a history of back surgery in 2022. Patient reports he underwent he is here today after his surgery and has recovered well until this point. He denies any urinary symptoms, saddle anesthesia, incontinence, or recent fevers. Labs Ordered: Urinalysis Imaging Ordered: CT lumbar spine Medications Ordered: Toradol 60 mg IM, prednisone 40 mg p.o. Results: Patient's CT scan indicates L5 laminectomy and resection of the left-sided L5 inferior articular process. Combined L4-L5 instrumented anterior and posterior spinal fusion with interbody fusion device and bilateral vertical varsha and pedicle screw fixation. Alignment is normal. Vertebral body and disc heights are normal. L4-L5 disc is mildly bulging with minimal central canal stenosis. No central canal stenosis. There is multilevel mild lumbar facet osteoarthritis. There is mild neural foraminal stenosis bilaterally at L4-L5 and L5-S1. Mild osteoarthritis at the bilateral sacroiliac joints. Paravertebral soft tissues are unremarkable. Diagnosis: Lumbar spondylosis, sciatica Consults: Neurosurgery (outpatient) Patient Education/Shared MDM: Results of imaging shared with patient. He endorses improvement following medication administration. Patient strongly advised to maintain hydration status upon discharge and follow-up with his PCP as soon as possible. He will also be given a referral to neurosurgery for further evaluation. He will be discharged home with a prescription for Toradol and Prednisone. Strict return precautions provided. Patient verbalized understanding and is in agreement with plan. Vital signs stable at time of discharge. All questions answered. Differential Diagnosis Differential diagnosis: Likely lumbar radiculopathy, sciatica and strain of lumbar region Lab Data Attestation: I reviewed the patient's lab results. Labs: Lab Results 03/16/25 Range/Units 11:02 Urine Color Yellow (Yellow) Urine Appearance Clear (Clear) Urine pH 6.0 (5.0-9.0) Ur Specific [place] 1.015 (1.001-1.035) Urine Protein Negative (Negative) mg/dL Urine Glucose (UA) Negative (Negative) mg/dL Urine Ketones Negative (Negative) mg/dL Ur Blood (Man) Negative (Negative) Urine Nitrate Negative (Negative) Urine Bilirubin Negative (Negative) Urine Urobilinogen 0.2 (<2.0) mg/dL Leukocyte Esterase Rfl Negative (Negative) RICA/UL Imaging Data Attestation: I personally reviewed and interpreted this imaging study as follows: Radiologist's impression: Impressions Lumbar Spine CT 03/16/25 11:38 IMPRESSION: 1. Lumbar spondylosis with combined instrumented L5-S1 anterior and posterior spinal fusion. Discharge Plan Discharge Clinical Impression: Lumbar radiculopathy, Sciatica Patient Disposition: Home Condition: Stable Instructions: Antibiotic Form, Acute Low Back Pain (ED), Lumbar Radiculopathy (ED) Additional Instructions: Please return to the ER with any worsening symptoms. Follow-up with primary care provider as soon as possible. You may also follow-up with Neurosurgery for further evaluation. Take all medications as prescribed, including regularly scheduled medications. You may use Toradol for pain control. Do not take Toradol at same time as ibuprofen. Patient Language: Romansh Prescriptions: New ketorolac 10 mg tablet 10 mg PO Q8H PRN (Reason: pain) Qty: 20 0RF Rx Instructions: maximum total duration of 5 days from all oral, intranasal, or parenteral formulations prednisone 50 mg tablet 50 mg PO DAILY Qty: 5 0RF No Action ondansetron HCl [Zofran] 4 mg tablet 4 mg PO Q8H PRN (Reason: nausea and vomiting) Qty: 10 0RF Follow-up/Referrals: Mervin Damon MD [Physician] - (neurosurgery) [place], [Primary Care Provider] - Stand Alone Forms: Work/School Release IP Time of Disposition: 13:42
--- NOTE | 2025-03-16 11:04 | PC.NURSE ---
Pt in CT scan via w/c at this time.
[2025-03-16 11:30] LABS: Add Urine Microscopic? NO; Appearance Urine Clear (Clear); Color Urine Yellow (Yellow)
[2025-03-16 11:31] LABS: Bilirubin Urine Negative (Negative); Blood Urine Negative (Negative); Glucose Urine UA Negative (Negative); Ketones Urine Negative (Negative); Leukocyte Esterase Ur Negative LEU/UL (Negative); Nitrate Urine Negative (Negative); Protein Urine Negative (Negative); Specific Grav Ur 1.015 (1.001-1.035); Urobilinogen Urine 0.2 mg/dL (<2.0)
[2025-03-16] MEDS: predniSONE 20 MG TABLET 40 MG PO (11:32)
[2025-03-16] MEDS: KETOROLAC (*BKC) 60 MG/2 ML VIAL IM (11:32)
[2025-03-16 11:36] VITALS: BP 133/78; PULSE 67; RESP 18; O2SAT 100
[2025-03-16 12:50] VITALS: BP 113/72; PULSE 72; RESP 14; O2SAT 98
== END 2025-03-16 13:54 | disposition home or self-care (01) ==
PROVIDERS: Emergency Provider Registered Nurse
DX: M47.26 Other spondylosis with radiculopathy, lumbar region (principal); M54.41 Lumbago with sciatica, right side; Z98.1 Arthrodesis status
CPT/HCPCS: 72131; 81003; 96372; 99284; J1885; J7512